=== PATIENT | male | born 1975 | race Caucasian/White ===

== ENCOUNTER 2017-03-24 00:05 | Inpatient (IN) | payer BC ==
[2017-03-24 00:47] LABS: APPEARANCE,URINE CLEAR; BILIRUBIN,URINE NEGATIVE (NEGATIVE); GLUCOSE, URINE NEGATIVE (NEGATIVE); KETONES,URINE NEGATIVE (NEGATIVE); LEUKOCYTE ESTERASE,URINE NEGATIVE (NEGATIVE); NITRITE,URINE NEGATIVE (NEGATIVE); PROTEIN,URINE NEGATIVE (NEGATIVE); URINE SPECIFIC GRAVITY 1.005; UROBILINOGEN,URINE NEGATIVE mg/dL (<2.0)
[2017-03-24] MEDS ORDERED: NORMAL SALINE 1000 ML 1,000 ML IV PRN (01:30)
[2017-03-24] MEDS ORDERED: ONDANSETRON HCL INJ/PF 4 MG/2 ML SDV IV ONE (01:30)
[2017-03-24] MEDS ORDERED: MORPHINE SULFATE 10 MG/ML INJ IV ONE ×2 (01:30→03:04)
--- NOTE | 2017-03-24 01:31 | ER Document Report ---
ED GI/ - General Chief Complaint: Abdominal Pain Stated Complaint: ABDOMINAL PAIN Time Seen by Provider: 03/24/17 01:18 Mode of Arrival: Ambulatory Information source: Patient TRAVEL OUTSIDE OF THE [place] IN LAST 30 DAYS: No - HPI Patient complains to provider of: Abdominal pain Onset: Other - 2-3 days Timing/Duration: Gradual, Persistent Quality of pain: Achy, Cramping Severity at maximum: Moderate Severity in ED: Moderate Location: Epigastric, Left flank Associated symptoms: Dysuria, Nausea Exacerbated by: Denies Relieved by: Denies Similar symptoms previously: No Recently seen / treated by doctor: No Notes: 03/24/17 03:06 Is a 41-year-old male who presents to the emergency room complaining of abdominal pain with nausea that has been going on for the past 2-3 days, this evening it woke him from sleep, it is mainly on the left side but started out on the right upper quadrant and epigastric region, he also reports a sensation of a sweet taste in his mouth, patient has a history of a previous perforated diverticulum with a colostomy which was then closed February 2016, since then he has been trying to eat more fiber and salads or healthier foods, he also has a history of pancreatitis, states his last alcoholic beverage was over a week ago , he reports increased color to his urine as well as odor, no fevers, no questionable food intake recently, he did travel to [place] recently - Related Data Allergies/Adverse Reactions: No Known Allergies Allergy (Verified 07/07/16 18:10) Past Medical History - General Information source: Patient - Social History Smoking Status: Never Smoker Family History: Reviewed & Not Pertinent Patient has suicidal ideation: No Patient has homicidal ideation: No - Past Medical History Cardiac Medical History: Denies: Hx Atrial Fibrillation, Hx Congestive Heart Failure, Hx Coronary Artery Disease, Hx Heart Attack, Hx Hypercholesterolemia, Hx Hypertension, Hx Peripheral Vascular Disease, Hx Pulmonary Embolism, Hx Heart Murmur Pulmonary Medical History: Denies: Hx Asthma, Hx Bronchitis, Hx COPD, Hx Pneumonia, Hx Respiratory Failure, Hx Sleep Apnea, Hx Tuberculosis Neurological Medical History: Denies: Hx Cerebrovascular Accident, Hx Seizures Endocrine Medical History: Reports: Hx Diabetes Mellitus Type 2. Denies: Hx Diabetes Mellitus Type 1, Hx Graves' Disease, Hx Hyperthyroidism, Hx Hypothyroidism Renal/ Medical History: Denies: Hx Benign Prostatic Hyperplasia, Hx End Stage Renal Disease, Hx Kidney Stones, Hx Peritoneal Dialysis Malignancy Medical History: Denies Hx Leukemia, Denies Hx Lung Cancer GI Medical History: Reports: Hx Diverticulitis. Denies: Hx Crohn's Disease, Hx Gastroesophageal Reflux Disease, Hx Hiatal Hernia, Hx Irritable Bowel, Hx Liver Failure, Hx Ulcer Musculoskeltal Medical History: Denies Hx Arthritis, Denies Hx Fibromyalgia, Denies Hx Multiple Sclerosis, Denies Hx Muscular Dystrophy Psychiatric Medical History: Denies: Hx Bipolar Disorder, Hx Dementia, Hx Depression, Hx Post Traumatic Stress Disorder, Hx Schizophrenia Traumatic Medical History: Denies: Hx Fractures Infectious Medical History: Denies: Hx HIV Past Surgical History: Reports: Hx Bowel Surgery - colostomy,COLON RESECTION, ILEOSTOMY IN PLACE. Denies: Hx Appendectomy, Hx Cholecystectomy, Hx Colostomy, Hx Coronary Artery Bypass Graft, Hx Gastric Bypass Surgery, Hx Herniorrhaphy, Hx Pacemaker, Hx Tonsillectomy - Immunizations Hx Diphtheria, Pertussis, Tetanus Vaccination: Yes Review of Systems - Review of Systems Constitutional: No symptoms reported EENT: No symptoms reported Cardiovascular: No symptoms reported Respiratory: No symptoms reported Gastrointestinal: See HPI Genitourinary: See HPI Male Genitourinary: No symptoms reported Musculoskeletal: No symptoms reported Skin: No symptoms reported Hematologic/Lymphatic: No symptoms reported Neurological/Psychological: No symptoms reported -: Yes All other systems reviewed and negative Physical Exam - Vital signs Vitals: Temp Pulse Resp BP Pulse Ox 98.5 F 80 16 156/91 H 97 03/24/17 00:17 03/24/17 00:17 03/24/17 00:17 03/24/17 00:17 03/24/17 00:17 Interpretation: Normal - General General appearance: Appears well, Alert - HEENT Head: Normocephalic, Atraumatic Eyes: Normal Pupils: PERRL - Respiratory Respiratory status: No respiratory distress Chest status: Nontender Breath sounds: Normal Chest palpation: Normal - Cardiovascular Rhythm: Regular Heart sounds: Normal auscultation Murmur: No - Abdominal Inspection: Normal Distension: No distension Bowel sounds: Normal Tenderness: Tender - epigastric, LUQ, RUQ Organomegaly: No organomegaly - Back Back: Normal, Nontender - Extremities General upper extremity: Normal inspection, Nontender, Normal color, Normal ROM , Normal temperature General lower extremity: Normal inspection, Nontender, Normal color, Normal ROM , Normal temperature, Normal weight bearing. No: Murphy's sign - Neurological Neuro grossly intact: Yes Cognition: Normal Orientation: AAOx4 Rylan Coma Scale Eye Opening: Spontaneous [place] Coma Scale Verbal: Oriented [place] Coma Scale Motor: Obeys Commands Rylan Coma Scale Total: 15 Speech: Normal Motor strength normal: LUE, RUE, LLE, RLE Sensory: Normal - Psychological Associated symptoms: Normal affect, Normal mood - Skin Skin Temperature: Warm Skin Moisture: Dry Skin Color: Normal Course - Re-evaluation Re-evalutation: 03/24/17 03:55 Was discussed with on-call surgeon, Dr. Vazquez, to admit for further evaluation and treatment, this plan was discussed with patient and at bedside who are in agreement as well - Vital Signs Vital signs: Temp Pulse Resp BP Pulse Ox 98.5 F 80 16 156/91 H 97 03/24/17 00:17 03/24/17 00:17 03/24/17 00:17 03/24/17 00:17 03/24/17 00:17 - Laboratory Result Diagrams: 03/24/17 01:20 03/24/17 01:20 Laboratory results interpreted by me: 03/24/17 03/24/17 01:20 01:20 Eosinophils % 9.4 H Absolute Eosinophils 0.8 H Total Bilirubin 2.3 H Direct Bilirubin 1.8 H AST 214 H ALT 712 H Alkaline Phosphatase 165 H - Diagnostic Test Radiology reviewed: Image reviewed, Reports reviewed Discharge - Discharge Clinical Impression: Gallstones Condition: Stable Disposition: ADMITTED INPATIENT Admitting Provider: Surgicalist Unit Admitted: Surgical Floor Referrals: NHAN STEELE MD [Primary Care Provider] - Follow up as needed
[2017-03-24 01:40] LABS: ABSOLUTE BASOPHILS # (AUTO) 0.1 10^3/uL (0.0-0.2); ABSOLUTE EOSINOPHILS # (AUTO) 0.8 10^3/uL (0.0-0.6); ABSOLUTE LYMPHOCYTES (AUTO) 2.5 10^3/uL (0.5-4.7); ABSOLUTE MONOCYTES (AUTO) 0.9 10^3/uL (0.1-1.4); ABSOLUTE NEUT (AUTO) 4.4 10^3/uL (1.7-8.2); BASOPHILS % (AUTO) 0.7 % (0-2); EOSINOPHILS % (AUTO) 9.4 % (0-6); HEMATOCRIT 43.6 % (37.9-51.0); HEMOGLOBIN 14.4 g/dL (13.5-17.0); HGB HCT DIFFERENCE -0.4; LYMPHOCYTES % (AUTO) 29.2 % (13-45); MEAN CORPUSCULAR HEMOGLOBIN 30.1 pg (27.0-33.4); MEAN CORPUSCULAR HGB CONC 33.1 g/dL (32.0-36.0); MEAN CORPUSCULAR VOLUME 91 fl (80-97); MONOCYTES % (AUTO) 9.8 % (3-13); RED CELL DISTRIBUTION WIDTH 13.4 % (11.5-14.0); SEGMENTED NEUTROPHILS % (AUTO) 50.9 % (42-78); WHITE BLOOD COUNT 8.7 10^3/uL (4.0-10.5)
[2017-03-24 01:41] LABS: ALANINE AMINOTRANSFERASE 712 U/L (21-72); ALBUMIN 4.2 g/dL (3.5-5.0); ALKALINE PHOSPHATASE 165 U/L (38-126); ANION GAP 12 (5-19); ASPARTATE AMINO TRANSFERASE 214 U/L (17-59); BILIRUBIN,DIRECT 1.8 mg/dL (0.0-0.4); BILIRUBIN,TOTAL 2.3 mg/dL (0.2-1.3); BLOOD UREA NITROGEN 18 mg/dL (7-20); CALCIUM 9.6 mg/dL (8.4-10.2); CARBON DIOXIDE 22 mmol/L (22-30); CHLORIDE 106 mmol/L (98-107); CREATININE RESULT 1.02 mg/dL (0.52-1.25); GLUCOSE 98 mg/dL (75-110); LIPASE 143.3 U/L (23-300); POTASSIUM 4.1 mmol/L (3.6-5.0); SODIUM 139.9 mmol/L (137-145); TOTAL PROTEIN 7.4 g/dL (6.3-8.2)
--- NOTE | 2017-03-24 02:26 | RADIOLOGY REPORT (SQ) ---
EXAM DESCRIPTION: CT ABD/PELVIS WITH IV ONLY COMPLETED DATE/TIME: 03/24/2017 2:10 am REASON FOR STUDY: L abd pain COMPARISON: 03/13/2015. TECHNIQUE: CT scan of the abdomen and pelvis performed using helical scanning technique with dynamic intravenous contrast injection. No oral contrast. Images reviewed with lung, soft tissue, and bone windows. Reconstructed coronal and sagittal MPR images reviewed. Delayed images for evaluation of the urinary system also acquired. All images stored on PACS. All CT scanners at this facility use dose modulation, iterative reconstruction, and/or weight based d osing when appropriate to reduce radiation dose to as low as reasonably achievable (ALARA). [facility]: Dose Right [facility]: CareDose [facility]: Dose Right [facility]: Teradose 4D [facility]: Intraxio CONTRAST TYPE AND DOSE: 100mL Isovue 370- low osmolar. RENAL FUNCTION: Creatinine 1.0 RADIATION DOSE: 39.64mGy. LIMITATIONS: None. FINDINGS: LOWER CHEST: No significant findings. 0.5 and 0.4 cm noncalcified right lower lobar pulmo nary nodules without suspicious interval change compared with prior exam, 03/13/2015. LIVER: Normal size. No masses or dilated ducts. Mild hepatic steatosis. SPLEEN: Normal size. No focal lesions. PANCREAS: No masses. No significant calcifications. No adjacent inflammation or peripancreatic fluid collections. Pancreatic duct not dilated. GALLBLADDER: Small cholelithiasis. ADRENAL GLANDS: No significant masses or asymmetry. RIGHT KIDNEY AND URETER: No solid masses. No significant calcifications. No hydronephrosis or hyd roureter. LEFT KIDNEY AND URETER: No solid masses. No significant calcifications. No hydronephrosis or hydr oureter. AORTA AND VESSELS: No aneurysm. No dissection. Renal arteries, SMA, celiac without stenosis. RETROPERITONEUM: No retroperitoneal adenopathy, hemorrhage or masses. BOWEL AND PERITONEAL CAVITY: No masses or inflammatory changes. No free fluid or peritoneal masses. Suture material of the sigmoid and small bowel of the right paracentral abdomen. APPENDIX: No evidence of appendicitis. PELVIS: No mass or free fluid. Normal bladder. ABDOMINAL WALL: No masses. Small right inguinal fat only hernia. Small scar associated with right p aracentral abdominal wall. BONES: No significant or acute findings. OTHER: No other significant finding. IMPRESSION: No acute findings. Small cholelithiasis. TECHNICAL DOCUMENTATION: JOB ID: [id number] Quality ID # [id number]: Final reports with documentation of one or more dose reduction techniques (e.g., Au tomated exposure control, adjustment of the mA and/or kV according to patient size, use of iterative reconstruction technique) 2010 [employer]- All Rights Reserved
--- NOTE | 2017-03-24 03:40 | RADIOLOGY REPORT (SQ) ---
EXAM DESCRIPTION: U/S ABDOMEN LIMITED W/O DOP COMPLETED DATE/TIME: 03/24/2017 3:24 am REASON FOR STUDY: abd pain COMPARISON: None. TECHNIQUE: Dynamic and static grayscale images acquired of the abdomen and recorded on PACS. Additio nal selected color Doppler and spectral images recorded. LIMITATIONS: None. FINDINGS: PANCREAS: Limited visualization. LIVER: No masses. [id number] hepatic steatosis. LIVER VASCULATURE: Normal directional flow of the main portal vein and hepatic veins. GALLBLADDER: Small gallstones in the gallbladder neck. ULTRASOUND-DETECTED CARNEY'S SIGN: Not documented. INTRAHEPATIC DUCTS AND COMMON DUCT: 0.2 cm diameter. CBD and intrahepatic ducts normal caliber. No f illing defects. INFERIOR VENA CAVA: Normal flow. AORTA: No aneurysm. RIGHT KIDNEY: Normal size. Normal echogenicity. No solid or suspicious masses. No hydronephrosis. No calcifications. Extrarenal pelvis. PERITONEAL AND RIGHT PLEURAL SPACE: No ascites or effusions. OTHER: No other significant findings. IMPRESSION: Cholelithiasis. Limited visualization of the pancreas. TECHNICAL DOCUMENTATION: JOB ID: [id number] [employer]- All Rights Reserved
[2017-03-24] MEDS ORDERED: ONDANSETRON HCL INJ/PF 4 MG/2 ML SDV ONE ×2 (06:43→16:43)
[2017-03-24] MEDS ORDERED: HYDROMORPHONE HCL INJ/PF 2 MG/ML AMPULE ONE (06:43)
[2017-03-24] MEDS ORDERED: POTASSI CL 20 MEQ/D5-1/2NS 1L 1000 ML IV PRN (06:43)
[2017-03-24] MEDS: POTASSI CL 20 MEQ/D5-1/2NS 1L 1000 ML IV PRN ×2 (06:58→19:55)
--- NOTE | 2017-03-24 07:33 | HISTORY AND PHYSICAL E ---
History and Physical NAME: CLAUDIA MCGOVERN : 1975 AGE: 41Y ADMITTED: 03/24/2017 ROOM: 401 HISTORY OF PRESENT ILLNESS: The patient is a 41-year-old male patient admitted through the Emergency Room with a history of abdominal pain, nausea; pain basically for 2 days and found to have gallstones, multiple with jaundice. He is being admitted for a possible choledocholithiasis and cholelithiasis with cholecystitis management. This gentleman, with no symptoms until 2 days ago, started having upper abdominal pain, mostly on the right side. Last night he could not tolerate it any more. He had nausea. Pain was mostly in the right upper quadrant radiating up his shoulder, associated with nausea. Upon arrival to the Emergency Room he had an ultrasound of the gallbladder, which revealed multiple gallstones. Specifically did not reveal any dilatation of the common bile duct, but abnormal liver functions including bilirubin was 2.3, direct 1.8. Alkaline phosphatase also elevated at 165. PAST SURGICAL HISTORY: Significant for history of diverticulitis with resection ileostomy, *------* take down in the past about a year ago. MEDICAL PROBLEMS: There are no other major medical problems. REVIEW OF SYSTEMS: CARDIOVASCULAR: No history of chest pain. RESPIRATORY: No shortness of breath. ENDOCRINE: No known history of diabetes. PHYSICAL EXAMINATION: VITAL SIGNS: He is mildly icteric examination with blood pressure about 120s, heart rate about 64. HEAD AND NECK: No lymphadenopathy. No masses. RESPIRATORY: Both lungs were clear to auscultation. CARDIOVASCULAR: Both heart sounds are regular. No murmurs. No gallops. ABDOMEN: Soft. He does have tenderness in the right upper quadrant area, no mass palpable. No hernia. EXTREMITIES: Warm and well perfused. LABORATORY DATA: Abnormal, particularly liver function test with a bilirubin 2.3, 1.8 direct, alkaline phosphatase 165, white count 8.7, hemoglobin 14. IMPRESSION: Overall cholelithiasis, cholecystitis, and possible choledocholithiasis with some degree of functional jaundice. PLAN: He is getting an MRI done today. I ordered an MRI and MRCP to evaluate the common bile duct. If it is positive, then will get a GI consult for ERCP followed by cholecystectomy. In the meantime he is being covered with IV antibiotic, Levaquin IV. The patient was explained about the plan and the patient understood the plan. DICTATING PHYSICIAN: PRESTON COTA M.D. [id number] [facility]#: [id number] ID: [id number] JOB#: [id number] ACCT: [id number] cc: > [facility]
[2017-03-24] MEDS ORDERED: DEXTROSE 40% GEL 15 GM TUBE PO PRN ×2 (08:53)
[2017-03-24] MEDS ORDERED: DEXTROSE 50%-WATER 25 GM/50 ML DISP.SYRIN IV PRN ×2 (08:53)
[2017-03-24] MEDS ORDERED: GLUCAGON,HUMAN RECOMB 1 MG INJ SUBCUT PRN (08:53)
--- NOTE | 2017-03-24 09:02 | PDOC PROGRESS REPORT ---
Subjective Progress Note for:: 03/24/17 Subjective:: Still having epigastric abdominal pain. Physical Exam Vital Signs: Temp Pulse Resp BP Pulse Ox 98.3 F 67 20 136/77 H 98 03/24/17 07:54 03/24/17 07:54 03/24/17 07:54 03/24/17 07:54 03/24/17 07:54 Intake & Output 03/23/17 03/24/17 03/25/17 06:59 06:59 06:59 Intake Total 0 Output Total 0 Balance 0 General appearance: PRESENT: no acute distress GI/Abdominal exam: PRESENT: other - Soft, nondistended, diffuse upper abdominal tenderness to palpation especially right upper quadrant. No peritoneal signs Results Impressions: Abdomen/Pelvis CT 03/24/17 01:30 IMPRESSION: No acute findings. Small cholelithiasis. Abdomen Ultrasound 03/24/17 02:39 IMPRESSION: Cholelithiasis. Limited visualization of the pancreas. Assessment & Plan - Diagnosis (1) Choledocholithiasis with cholecystitis Is this a current diagnosis for this admission?: YesPlan: With this marked elevation of his liver function studies and small gallstones seen patient has high likelihood of choledocholithiasis. Will consult gastroenterology for ERCP. Unfortunately MRCP at our institution is not perfectly sensitive for common bile duct stones.
[2017-03-24 09:43] LABS: PROTHROMBIN TIME 12.6 SEC (11.4-15.4)
[2017-03-24] MEDS ORDERED: ENOXAPARIN SODIUM INJ 40 MG/0.4 ML DISP.SYRIN SUBCUT SCH (10:00)
[2017-03-24] MEDS: HYDROMORPHONE HCL INJ/PF 2 MG/ML AMPULE IV PRN ×2 (10:09→19:55)
[2017-03-24] MEDS: LEVOFLOXACIN 750 MG/D5W RTU 750 MG/150 ML RTUPB IV SCH (10:10)
[2017-03-24] MEDS: ENOXAPARIN SODIUM INJ 40 MG/0.4 ML DISP.SYRIN SUBCUT SCH (10:11)
[2017-03-24] MEDS ORDERED: NALOXONE HCL INJ/PF 0.4 MG/1 ML SDV ONE (16:41)
[2017-03-24] MEDS ORDERED: FENTANYL CITRATE INJ/PF 100 MCG/2 ML AMPUL ONE (16:41)
[2017-03-24] MEDS ORDERED: GLUCAGON,HUMAN RECOMB 1 MG INJ ONE (16:42)
[2017-03-24] MEDS ORDERED: EPINEPHRINE INJ 1 MG/10 ML DISP.SYRIN ONE (16:42)
[2017-03-24] MEDS ORDERED: FLUMAZENIL INJ 0.5 MG/5 ML VIAL IV ONE (16:42)
[2017-03-24] MEDS: MIDAZOLAM 2 MG/2 ML INJ ONE ×4 (18:18→18:27)
--- NOTE | 2017-03-24 18:19 | PDOC CONSULTATION ---
Consultation Consult Date: 03/24/17 History of Present Illness Admission Date/PCP: 03/24/17 04:00 NHAN STEELE MD History of Present Illness: CLAUDIA MCGOVERN JR is a 41 year old male who was admitted early on today with abdominal pain, gallstones, and jaundice. He has been having recurrent postprandial epigastric pain for the last 4 days. This is associated with nausea but no vomiting. His bilirubin was 2.3 on admission with a normal lipase. His ultrasound showed gallstones but no dilated ducts. A CAT scan of the abdomen was unremarkable. Past Medical History Cardiac Medical History: Denies: Atrial Fibrillation, Congestive Heart Failure, Coronary Artery Disease, Myocardial Infarction, Hyperlipidema, Hypertension, Peripheral Vascular Disease, Pulmonary Embolism, Heart Murmur Pulmonary Medical History: Denies: Asthma, Bronchitis, Chronic Obstructive Pulmonary Disease (COPD), Pneumonia, Respiratory Failure, Sleep Apnea, Tuberculosis Neurological Medical History: Denies: Seizures Endocrine Medical History: Reports: Diabetes Mellitus Type 2 Denies: Diabetes Mellitus Type 1, Hyperthyroidism, Hypothyroidism Renal/ Medical History: Denies: End Stage Renal Disease Malignancy Medical History: Denies: Leukemia, Lung Cancer GI Medical History: Reports: Diverticulitis Denies: Crohn's Disease, Gastroesophageal Reflux Disease, Hiatal Hernia Musculoskeltal Medical History: Denies: Arthritis, Fibromyalgia Psychiatric Medical History: Denies: Bipolar Disorder, Dementia, Depression, Post Traumatic Stress Disorder Hematology: Denies: Anemia, Hemophilia, Sickle Cell Disease Infectious Medical History: Denies: HIV Past Surgical History Past Surgical History: Denies: Appendectomy, Cholecystectomy, Colostomy, Coronary Artery Bypass Graft, Gastric Bypass Surgery, Herniorrhaphy, Pacemaker, Tonsillectomy Social History Smoking Status: Former Smoker Cigarettes Packs Per Day: 1 Number of Years Smokin Last Time Smoked: 20 years ago Frequency of Alcohol Use: Occasional Hx Recreational Drug Use: No Drugs: None Hx Prescription Drug Abuse: No - Advance Directive Resuscitation Status: Full Code Family History Family History: Reviewed & Not Pertinent Parental Family History Reviewed: No Children Family History Reviewed: NA Sibling(s) Family History Reviewed.: NA Medication/Allergy Home Medications: No Home Medications 03/24/17 Allergies/Adverse Reactions: No Known Allergies Allergy (Verified 07/07/16 18:10) Review of Systems All systems: reviewed and no additional remarkable complaints except as stated Physical Exam Vital Signs: Temp Pulse Resp BP Pulse Ox 98 F 71 14 122/75 95 03/24/17 17:00 03/24/17 17:25 03/24/17 17:25 03/24/17 17:25 03/24/17 17:25 Intake & Output 03/23/17 03/24/17 03/25/17 06:59 06:59 06:59 Intake Total 0 1458 Output Total 0 400 Balance 0 1058 Exam: General: Patient is alert and looks well. HEENT: There is no pallor or jaundice. PERRLA. Oropharynx normal Respiratory: No chest deformity. No respiratory distress. Chest wall palpitation was unremarkable. Breath sounds were normal Cardiovascular: Heart sounds 1 and 2 normal with no murmurs. Abdominal: Not distended. Soft and nontender. Liver and spleen not palpable. No ascites demonstrated. Bowel sounds active. Rectal examination was deferred. Extremities: No edema Neurological: Alert and oriented x4. Grossly nonfocal. Normal speech Skin: No significant rash Psychological: Normal affect Results Impressions: Abdomen/Pelvis CT 03/24/17 01:30 IMPRESSION: No acute findings. Small cholelithiasis. Abdomen Ultrasound 03/24/17 02:39 IMPRESSION: Cholelithiasis. Limited visualization of the pancreas. Assessment & Plan - Diagnosis (1) Abnormal liver enzymes Is this a current diagnosis for this admission?: YesPlan: His recurrent abdominal pain associated with jaundice and gallstones is likely related to choledocholithiasis. The need for an ERCP including the risk and benefits were explained to the patient and he is in agreement. He will undergo cholecystectomy soon thereafter (2) Gallstones Is this a current diagnosis for this admission?: Yes (3) Abdominal pain Qualifiers: Abdominal location: epigastric Qualified Code(s): R10.13 - Epigastric pain Is this a current diagnosis for this admission?: Yes
--- NOTE | 2017-03-24 18:39 | Operative Report ---
Operative Report DATE OF SURGERY: 03/24/17 Operative Report: Pre-op diagnosis: Jaundice and gallstones Post-op diagnosis: CBD sludge Surgery: ERCP with sphincterotomy and balloon sludge extraction Medications: Versed 6 mg Fentanyl 100 mcg IV push Tissue removed: None Procedure: After informed consent obtained from patient, the throat was sprayed with Hurricane and conscious sedation was achieved. The ERCP endoscope was then inserted into the esophagus blindly and advanced into the stomach. The duodenum was entered and the ampulla was identified. Using the triple-lumen sphincterotomy catheter the common bile duct was freely cannulated. A cholangiogram was obtained which showed possible filling defect in the distal common bile duct. The common bile duct and intrahepatic ducts did not appear dilated. A good sized sphincterotomy was then performed using the endocut mode. The catheter was removed over the guidewire before a 9-12 mm balloon catheter was inserted. The balloon was inflated to 12 mm in the proximal common bile duct and pulled down the duct. Some sludge was extracted. The duct was swept one more time. A balloon occlusion cholangiogram was normal. The pancreatic duct was intentionally not cannulated. Patient tolerated procedure well. Findings Common bile duct: Small amount of sludge with nondilated CBD Intrahepatic ducts: Normal Pancreatic duct: Not cannulated Plan: Proceed with cholecystectomy OPERATION: .
--- NOTE | 2017-03-24 21:04 | RADIOLOGY REPORT (SQ) ---
EXAM DESCRIPTION: ENDO CATH BILI/PANCREATIC COMPLETED DATE/TIME: 03/24/2017 8:07 pm REASON FOR STUDY: ERCP COMPARISON: None. FLUOROSCOPY TIME: 1.0 minutes 6 images saved to PACS. TECHNIQUE: Intra-operative images acquired during surgical procedure to evaluate progress. NUMBER OF IMAGES: 6 images LIMITATIONS: None. FINDINGS: Fluoroscopic images were obtained during performance of an ERCP. IMPRESSION: IMAGE(S) OBTAINED DURING PROCEDURE. COMMENT: Quality ID [id number]: Final reports for procedures using fluoroscopy that document radiation exp osure indices, or exposure time and number of fluorographic images (if radiation exposure indices are not available) Please consult full operative report of the attending physician for description of the procedure. TECHNICAL DOCUMENTATION: JOB ID: [id number] [employer]- All Rights Reserved
[2017-03-24] MEDS: ONDANSETRON HCL INJ/PF 4 MG/2 ML SDV IV PRN (22:33)
[2017-03-24] MEDS ORDERED: ACETAMINOPHEN 325 MG TABLET PO ONE (23:00)
[2017-03-25] MEDS: HYDROMORPHONE HCL INJ/PF 2 MG/ML AMPULE IV PRN ×2 (00:09→21:56)
[2017-03-25 04:56] LABS: HEMATOCRIT 44.6 % (37.9-51.0); HEMOGLOBIN 14.9 g/dL (13.5-17.0); HGB HCT DIFFERENCE 0.1; MEAN CORPUSCULAR HEMOGLOBIN 30.1 pg (27.0-33.4); MEAN CORPUSCULAR HGB CONC 33.5 g/dL (32.0-36.0); MEAN CORPUSCULAR VOLUME 90 fl (80-97); RED BLOOD COUNT 4.96 10^6/uL (4.35-5.55); RED CELL DISTRIBUTION WIDTH 13.7 % (11.5-14.0); WHITE BLOOD COUNT 7.3 10^3/uL (4.0-10.5)
[2017-03-25 05:12] LABS: ALANINE AMINOTRANSFERASE 624 U/L (21-72); ALBUMIN 4.3 g/dL (3.5-5.0); ALKALINE PHOSPHATASE 156 U/L (38-126); ASPARTATE AMINO TRANSFERASE 188 U/L (17-59); BILIRUBIN,DIRECT 1.3 mg/dL (0.0-0.4); BILIRUBIN,TOTAL 2.2 mg/dL (0.2-1.3); TOTAL PROTEIN 7.3 g/dL (6.3-8.2)
[2017-03-25] MEDS ORDERED: GLYCOPYRROLATE INJ 0.4 MG/2 ML VIAL ONE (08:11)
[2017-03-25] MEDS ORDERED: DEXAMETHASONE SOD PHOSPHATE INJ 4 MG/1 ML VIAL ONE (08:11)
[2017-03-25] MEDS ORDERED: LIDOCAINE 2% INJ-PF (20 MG/ML) 10 ML AMPUL ONE (08:11)
[2017-03-25] MEDS ORDERED: ONDANSETRON HCL INJ/PF 4 MG/2 ML SDV ONE (08:11)
[2017-03-25] MEDS ORDERED: KETOROLAC TROMETHAMINE 60 MG/2 ML SDV ONE (08:11)
[2017-03-25] MEDS ORDERED: ROCURONIUM BROMIDE INJ 50 MG/5 ML VIAL IV ONE (08:11)
[2017-03-25] MEDS ORDERED: SUCCINYLCHOLINE CHLORIDE INJ 200 MG/10 ML VIAL ONE (08:11)
[2017-03-25] MEDS ORDERED: NEOSTIGMINE METHYLSULFATE 10 MG/10 ML VIAL ONE (08:11)
[2017-03-25] MEDS ORDERED: ACETAMINOPHEN 325 MG TABLET PO PRN (08:43)
[2017-03-25] MEDS ORDERED: BUPIVACAINE HCL 0.25 % INJ/PF (2.5 MG/1 ML) 30 ML VIAL ONE (09:39)
[2017-03-25] MEDS: ENOXAPARIN SODIUM INJ 40 MG/0.4 ML DISP.SYRIN SUBCUT SCH (09:54)
[2017-03-25] MEDS: LEVOFLOXACIN 750 MG/D5W RTU 750 MG/150 ML RTUPB IV SCH (09:54)
[2017-03-25] MEDS ORDERED: FENTANYL CITRATE INJ/PF 100 MCG/2 ML AMPUL ONE (14:14)
[2017-03-25] MEDS ORDERED: MIDAZOLAM 2 MG/2 ML INJ ONE (14:14)
[2017-03-25] MEDS ORDERED: EPHEDRINE SULFATE INJ 50 MG/1 ML AMPULE ONE (14:14)
[2017-03-25] MEDS ORDERED: FENTANYL CITRATE INJ/PF 250 MCG/5 ML AMPULE ONE (14:14)
[2017-03-25] MEDS ORDERED: PROPOFOL INJ 200 MG/20 ML VIAL IV ONE (14:15)
[2017-03-25] MEDS ORDERED: ACETAMINOPHEN 100 ML IV ONE (14:15)
[2017-03-25] MEDS ORDERED: MORPHINE SULFATE 10 MG/ML INJ ONE (14:16)
[2017-03-25] MEDS ORDERED: MEPERIDINE HCL/PF INJ 25 MG/1 ML DISP.SYRIN IV PRN (17:01)
[2017-03-25] MEDS ORDERED: DIPHENHYDRAMINE HCL 50 MG/ML VIAL IV PRN (17:01)
[2017-03-25] MEDS ORDERED: PROMETHAZINE HCL INJ 25 MG/1 ML VIAL IV PRN ×2 (17:01)
[2017-03-25] MEDS ORDERED: FENTANYL CITRATE INJ/PF 100 MCG/2 ML AMPUL IV PRN ×3 (17:01)
[2017-03-25] MEDS ORDERED: MORPHINE SULFATE 10 MG/ML INJ IV PRN (17:01)
[2017-03-25] MEDS ORDERED: OXYCODONE-ACETAMINOPHEN 5-325 MG TABLET PO PRN ×2 (17:01)
[2017-03-25] MEDS ORDERED: HYDROMORPHONE HCL INJ/PF 2 MG/ML AMPULE IV PRN (18:50)
[2017-03-25] MEDS ORDERED: RINGERS SOLUTION,LACTATED 1,000 ML IV PRN (18:51)
[2017-03-25] MEDS: FENTANYL CITRATE INJ/PF 100 MCG/2 ML AMPUL ONE ×2 (19:03→19:14)
--- NOTE | 2017-03-25 19:38 | OPERATIVE REPORT E ---
Operative Report NAME: CLAUDIA MCGOVERN : 1975 AGE: 41Y DATE OF SURGERY: 03/24/2017 ROOM: 401 PREOPERATIVE DIAGNOSIS: Common bile duct stone post endoscopic retrograde cholangiopancreatography and sphincterotomy and removal of common bile duct stones. POSTOPERATIVE DIAGNOSIS: Common bile duct stone post endoscopic retrograde cholangiopancreatography and sphincterotomy and removal of common bile duct stones. OPERATION: 1. Attempted laparoscopic cholecystectomy. 2. Open cholecystectomy. SURGEON: LOREE RACHEL M.D. ANESTHESIA: General. INDICATIONS: This is a 41-year-old male who was noted to have common bile duct stones and an ERCP yesterday. His enzymes are trending down this morning, and the pain has practically subsided. DESCRIPTION OF PROCEDURE: After adequate general anesthesia, the patient was placed in supine position and the abdomen prepped and draped in the usual sterile fashion. Appropriate timeout was done. Next, a subxiphoid incision was made and the fascia identified. The fascia was then opened, and a finger dissection was then performed. There appeared to be quite a bit of adhesions at this area. The patient did have a previous colon resection and reversal of colostomy. The procedure was converted to open. A right subcostal incision was made, the fascia divided with cautery, and the peritoneum entered. There were quite a few adhesions around the area *------* bluntly. Gallbladder was then identified. With the use of Bookwalter retractors, exposure was done though quite difficult since the patient was quite big and muscles were well formed. The gallbladder was subsequently dissected in a retrograde fashion. The adhesion to the liver bed was then dissected with the use of cautery and harmonic henry to the area of cystic duct. The cystic duct was then isolated and subsequently clipped and ligated with 0 Vicryl ties. A right-angle clamp placed in the area of the gallbladder and cystic duct subsequently divided just below the right-angle clamp. The liver bed was then irrigated and inspected and no evidence of bleeding. A Peter-Pierson drain was then placed through a stab wound in the right upper quadrant and anchored to the skin with 3-0 silk. The drain was then placed in the area of the foramen of Latimer and towards the area of the liver bed. Next, the incisions were then closed in layers. The inner layer posterior layer using running suture of #1 PDS and the anterior layer also with #1 PDS. The midline incision from the trocar site was closed with running suture of #1 PDS. The subcutaneous was then irrigated with saline solution and adequate hemostasis noted. Skin was then closed with [place]. The patient tolerated the procedure well. Needle, instrument, and sponge counts were all correct. Estimated blood loss was about 100 mL. Sterile dressing was placed over the incision site after skin closure with ind[place]. Drain anchored to the skin with 3-0 silk. The patient tolerated well and brought to the recovery room in satisfactory condition. DICTATING PHYSICIAN: LOREE RACHEL M.D. [id number] PHY#: [id number] ID: [id number] JOB#: [id number] ACCT: [id number] cc:LOREE RACHEL M.D. >
[2017-03-25] MEDS: ONDANSETRON HCL INJ/PF 4 MG/2 ML SDV IV PRN (21:56)
[2017-03-26] MEDS: HYDROMORPHONE HCL INJ/PF 2 MG/ML AMPULE IV PRN ×6 (00:58→20:06)
[2017-03-26] MEDS ORDERED: OXYCODONE-ACETAMINOPHEN 5-325 MG TABLET PO PRN (05:00)
[2017-03-26] MEDS: LEVOFLOXACIN 500 MG/D5W RTU 500 MG/100 ML RTUPB IV SCH (07:46)
[2017-03-26] MEDS ORDERED: LEVOFLOXACIN 500 MG TABLET PO SCH (08:00)
[2017-03-26] MEDS: ENOXAPARIN SODIUM INJ 40 MG/0.4 ML DISP.SYRIN SUBCUT SCH (09:15)
--- NOTE | 2017-03-26 14:59 | PROGRESS NOTE E ---
Progress Note NAME: CLAUDIA MCGOVERN : 1975 AGE: 41Y DATE: 03/26/2017 ROOM: 401 SUBJECTIVE/OBJECTIVE: Patient is postop day #1 for open cholecystectomy. He has some mild incisional pains and tolerated his clear liquids this morning. He has not passed any flatus yet, but he feels that he might go any time. His abdomen is soft and nontender. The OPAL drain only drained about 25 mL from last night. PLAN: The plan is to continue on IV fluids for now and start him ambulating. We will discontinue the drain and hopefully, by tomorrow, if able to tolerate his diet and pain is controlled by pain pills, then we can discharge him to be followed in the surgical clinic. DICTATING PHYSICIAN: LOREE RACHEL M.D. [id number] PHY#: [id number] ID: [id number] JOB#: [id number] ACCT: [id number] cc: >
[2017-03-26] MEDS ORDERED: BISACODYL 10 MG SUPP.RECT PR ONE (16:30)
[2017-03-27] MEDS: HYDROMORPHONE HCL INJ/PF 2 MG/ML AMPULE IV PRN ×2 (00:18→04:59)
--- NOTE | 2017-03-27 08:08 | DISCHARGE SUMMARY E ---
Discharge Summary NAME: CLAUDIA MCGOVERN : 1975 AGE: 41Y ADMITTED: 03/24/2017 DISCHARGED: 03/27/2017 FINAL DIAGNOSIS: Common bile duct stone. PROCEDURES DONE: 1. ERCP with sphincterotomy and removal of common bile duct stones 03/24/[address] Elena. 2. 03/25/2017, open cholecystectomy, surgeon Dr. Campos. SUMMARY: This is a 41-year-old male who was noted to have common bile duct stones and underwent ERCP with sphincterotomy and removal of common bile duct stones by Dr. Elena on 03/24/2017. The next day, his enzymes were trending down and underwent attempted laparoscopy, but converted to open cholecystectomy. His postoperative course was uneventful and discharged on 03/27/2017 with a final diagnosis of gallstones with common bile duct stone. PLAN: 1. He is able to eat regular diet and continued to do so postop. 2. A note was given for work not to do any lifting more than 10-15 pounds for the next 6 weeks and then may resume regular work with no restrictions after that. 3. Patient to be followed up in the surgical clinic in about 10 days for removal of [place]. DICTATING PHYSICIAN: LOREE CAMPOS M.D. [id number] Y#: [id number] ID: [id number] JOB#: [id number] ACCT: [id number] cc:LOREE CAMPOS M.D. [facility],
[2017-03-27] MEDS: LEVOFLOXACIN 500 MG/D5W RTU 500 MG/100 ML RTUPB IV SCH (08:22)
[2017-03-27] MEDS: ENOXAPARIN SODIUM INJ 40 MG/0.4 ML DISP.SYRIN SUBCUT SCH (09:25)
[2017-03-27] MEDS ORDERED: KETOROLAC TROMETHAMINE INJ/PF 30 MG/1 ML SDV IV PRN ×2 (09:41→09:45)
[2017-03-27] MEDS ORDERED: OXYCODONE-ACETAMINOPHEN 5-325 MG TABLET PO PRN (09:42)
[2017-03-27 12:32] VITALS: BP 113/66
== END 2017-03-27 12:45 | disposition home or self-care (01) | DRG 416 ==
LOC: ER 00:05 → EH 04:00 → 4N 05:01
PROVIDERS: ATTEND Surgery
PROC: 0F798ZZ Dilation of Common Bile Duct, Via Natural or Artificial Opening Endoscopic (ICD-10-PCS; 2017-03-24)
PROC: 0FT40ZZ Resection of Gallbladder, Open Approach (ICD-10-PCS; principal; 2017-03-24 17:30)
PROC: 0FJ44ZZ Inspection of Gallbladder, Percutaneous Endoscopic Approach (ICD-10-PCS; 2017-03-24 17:30)
DX: K80.10 Calculus of gallbladder with chronic cholecystitis without obstruction (principal); Z53.31 Laparoscopic surgical procedure converted to open procedure; E11.9 Type 2 diabetes mellitus without complications; Z87.19 Personal history of other diseases of the digestive system; Z87.891 Personal history of nicotine dependence
CPT/HCPCS: 36415; 43262; 43264; 74177; 74330; 76705; 790; 80053; 80076; 81001; 83690; 85025; 85027; 85610; 85730; 88304; 94799; 96361; 96374; 96375; 96376; 99285; J0131; J0171; J0330; J1100; J1170; J1610; J1650; J1885; J1956; J2250; J2270; J2310; J2405; J2704; J3010; J3480; J3490; J7030; J7120

== ENCOUNTER 2020-02-23 18:29 | Emergency (ER) | payer BC ==
--- NOTE | 2020-02-23 18:53 | ER Document Report ---
ED Medical Screen (RME) - General Chief Complaint: S/S of Possible Stroke Stated Complaint: ARM NUMBNESS Time Seen by Provider: 02/23/20 18:47 Primary Care Provider: NHAN STEELE MD [Primary Care Provider] - Follow up as needed Mode of Arrival: Wheelchair Information source: Patient Notes: 44-year-old male presented to ED for complaint of the worst headache of her life. He states he woke up about 530 this morning with worse headache of his life and numbness to his left arm. He states when he went to bed last night he was normal. He states he does have a history of a TIA in the past. He states he is continuing to have the worst headache and numbness. Patient reports that on Thursday he was trying to speak and could not speak but that cleared up now he is alert oriented respirations regular nonlabored speaking in full sentences. I have greeted and performed a rapid initial assessment of this patient. A comprehensive ED assessment and evaluation of the patient, analysis of test results and completion of medical decision making process will be conducted by an additional ED providers. TRAVEL OUTSIDE OF THE [place] IN LAST 30 DAYS: No - Related Data Allergies/Adverse Reactions: No Known Allergies Allergy (Verified 07/07/16 18:10) Past Medical History - Past Medical History Cardiac Medical History: Denies: Hx Atrial Fibrillation, Hx Congestive Heart Failure, Hx Coronary Artery Disease, Hx Heart Attack, Hx Hypercholesterolemia, Hx Hypertension, Hx Peripheral Vascular Disease, Hx Pulmonary Embolism, Hx Heart Murmur Pulmonary Medical History: Denies: Hx Asthma, Hx Bronchitis, Hx COPD, Hx Pneumonia, Hx Respiratory Failure, Hx Sleep Apnea, Hx Tuberculosis Neurological Medical History: Denies: Hx Cerebrovascular Accident, Hx Seizures, Hx Parkinson's Disease Endocrine Medical History: Reports: Hx Diabetes Mellitus Type 2. Denies: Hx Diabetes Mellitus Type 1, Hx Graves' Disease, Hx Hyperthyroidism, Hx Hypothyroidism Renal/ Medical History: Denies: Hx Benign Prostatic Hyperplasia, Hx End Stage Renal Disease, Hx Kidney Stones, Hx Peritoneal Dialysis Malignancy Medical History: Denies Hx Leukemia, Denies Hx Lung Cancer GI Medical History: Reports: Hx Diverticulitis. Denies: Hx Crohn's Disease, Hx Gastroesophageal Reflux Disease, Hx Hiatal Hernia, Hx Irritable Bowel, Hx Liver Failure, Hx Pancreatitis, Hx Ulcer Musculoskeltal Medical History: Denies Hx Arthritis, Denies Hx Fibromyalgia, Denies Hx Multiple Sclerosis, Denies Hx Muscular Dystrophy, Denies Hx Systemic Lupus Erythematosus Psychiatric Medical History: Denies: Hx Bipolar Disorder, Hx Dementia, Hx Depression, Hx Post Traumatic Stress Disorder, Hx Schizophrenia Traumatic Medical History: Denies: Hx Fractures Infectious Medical History: Denies: Hx HIV Past Surgical History: Reports: Hx Bowel Surgery - colostomy,COLON RESECTION, ILEOSTOMY IN PLACE. Denies: Hx Appendectomy, Hx Cholecystectomy, Hx Colostomy, Hx Coronary Artery Bypass Graft, Hx Gastric Bypass Surgery, Hx Herniorrhaphy, Hx Pacemaker, Hx Tonsillectomy - Immunizations Hx Diphtheria, Pertussis, Tetanus Vaccination: Yes Physical Exam - Vital signs Vitals: Temp Pulse Resp BP Pulse Ox 98.1 F 100 20 158/99 H 98 02/23/20 18:32 02/23/20 18:32 02/23/20 18:32 02/23/20 18:32 02/23/20 18:32 Course - Vital Signs Vital signs: Temp Pulse Resp BP Pulse Ox 98.1 F 100 20 158/99 H 98 02/23/20 18:32 02/23/20 18:32 02/23/20 18:32 02/23/20 18:32 02/23/20 18:32 Doctor's Discharge - Discharge Referrals: NHAN STEELE MD [Primary Care Provider] - Follow up as needed
--- NOTE | 2020-02-23 18:55 | ER Document Report ---
ED NIH Stroke Scale - NIH Stroke Scale *: 1. NIH scale should be completed with appropriate accompanying assessment tools. *: 2. The NIH should reflect what the patient is capable of doing and should not be coached by the clinician. 1a. Level of Consciousness: 0=Alert;keenly responsive -: 1=Drowsy -: 2=Obtunded -: 3=Coma/unresponsive or reflex to noxious stimuli. 1a. Responses: 0 1b. Orientation Questions: a. What month is it? -: b. How old are you? -: 0=Answers both questions correctly. -: 1=Answers one question correctly or patient is intubated or has orotracheal trauma. -: 2=Answers neither question correctly. 1b. Responses: 0 1c. Response to commands: a. Open and close eyes? -: b. Data Typist and release hand? -: Credit is given despite weakness. Demonstration of task is permitted. Substitute command if hands cannot be used. -: 0=Performs both tasks correctly -: 1=Performs one task correctly -: 2=Performs neither task correctly 1c. Responses: 0 2. Gaze: Establish eye contact and instruct patient to "Follow my finger" -: 0=Normal -: 1=Partial gaze palsy. Gaze is abnormal in one or both eyes, but where forced deviation or total gaze paresis is not present. -: 2=Forced deviation or total gaze paresis. 2. Responses: 0 3. Visual Dyer: Sees fingers in all four quadrants. -: 0=No visual loss. -: 1=Partial hemianopsia. -: 2=Complete hemianopsia. -: 3=Bilateral hemianopsia (including Cortical blindness) 3. Responses: 0 4. Facial Movement: Instruct patient to: -: a. Show me your teeth -: b. Raise your eyebrows -: c. Close your eyes -: d. Smile -: 0=Normal symmetrical movement -: 1=Minor paralysis (flattened nasolabial fold, asymmetry on smiling). -: 2=Partial paralysis (total or near total paralysis of lower face). -: 3=Complete paralysis of upper and lower face 4. Responses: 0 5. Motor functions (left arm): Alternate sides and extend each arm with palms down (90 degrees if sitting or 45 degrees for supine). -: 0=No drift;limb holds for full 10 seconds. -: 1=Drift; limb holds but drifts down before full 10 seconds, but does not hit bed. -: 2=Some effort against gravity; limb cannot get to or maintain position. -: 3=No effort against gravity; limb falls. -: 4=No movement. -: UN=Amputation, joint fusion, explain in comments. 5. Responses (left arm): 0 5. Motor Functions (right arm): Alternate sides and extend each arm with palms down (90 degrees if sitting or 45 degrees for supine). -: 0=No drift;limb holds for full 10 seconds. -: 1=Drift; limb holds but drifts down before full 10 seconds, but does not hit bed. -: 2=Some effort against gravity; limb cannot get to or maintain position. -: 3=No effort against gravity; limb falls. -: 4=No movement. -: UN=Amputation, joint fusion, explain in comments. 5. Responses (right arm): 0 6. Motor Functions (left leg): With patient lying supine, alternate sides and extend each leg (30 degrees always while supine). -: 0=No drift, leg holds position for full 5 seconds -: 1=Drift; leg falls before full 5 seconds but does not hit bed. -: 2=Some effort against gravity, leg falls to bed but some effort against gravity. -: 3=No effort against gravity, leg falls to bed immediately. -: 4=No movement. -: UN=Amputation, joint fusion; explain in comments. 6. Responses (left leg): 0 6. Motor Functions (right leg): With patient lying supine, alternate sides and extend each leg (30 degrees always while supine). -: 0=No drift, leg holds position for full 5 seconds -: 1=Drift; leg falls before full 5 seconds but does not hit bed. -: 2=Some effort against gravity, leg falls to bed but some effort against gravity. -: 3=No effort against gravity, leg falls to bed immediately. -: 4=No movement. -: UN=Amputation, joint fusion; explain in comments. 6. Responses (right leg): 0 7. Limb Ataxia: With eyes open instruct patient to: -: a. "Touch your finger to your nose". -: b. "Touch your heel to your hall" -: 0=Absent -: 1=Present in one limb. -: 2=Present in two limbs. -: UN=Amputation or joint fusion; explain in comments. 7. Responses: 0 8. Sensory: Test sensation using pinprick or noxious stimuli. Test as many body parts as possible. -: 0=Normal;no sensory loss -: 1=Mile to moderate sensory loss (patient feels pin prick but is less sharp on affected side). -: 2=Severe or total sensory loss. 8. Responses: 1 9. Best Language: Instruct patient to: -: a. "Describe what you see in this picture." -: b. "Name the items in this picture." -: c. "Read these sentences." -: 0=No aphasia, normal -: 1=Mild to moderate aphasia. -: 2=Severe aphasia -: 3=Mute, global aphasia, no usable speech or auditory comprehension. 9. Responses: 0 10. Articulation, Dysarthia: Instruct patient to: -: "Read these words" or "Repeat these words" -: 0=Normal -: 1=Mild to moderate; patient may slur some words but can be understood without difficulty. -: 2=Severe; patients speech so slurred as to be unintelligible in the absence of dysphasia. -: UN=Intubated or other physical barrier, explain in comments. 10. Responses: 0 11. Extinction or inattention: 0=No abnormality -: 1= Visual, tactile, auditory, spatial, or personal inattention or extinction to bilateral simulation in one or the sensory modalities. -: 2=Profound alex-inattention or alex-inattention to more than one modality; does not recognize own hand. 11. Responses: 0 Total Score: 1
--- NOTE | 2020-02-23 19:15 | RADIOLOGY REPORT (SQ) ---
EXAM DESCRIPTION: CT HEAD WITHOUT IMAGES COMPLETED DATE/TIME: 02/23/2020 6:55 pm REASON FOR STUDY: Worst headache of life, numbness COMPARISON: 07/31/2014. TECHNIQUE: Axial images acquired through the brain without intravenous contrast. Images reviewed wi th bone, brain and subdural windows. Additional sagittal and coronal reconstructions were generated. Images stored on PACS. All CT scanners at this facility use dose modulation, iterative reconstruction, and/or weight based d osing when appropriate to reduce radiation dose to as low as reasonably achievable (ALARA). [facility]: Dose Right [facility]: CareDose [facility]: Dose Right [facility]: Teradose 4D [facility]: Smart Ziploop RADIATION DOSE: CT Rad equipment meets quality standard of care and radiation dose reduction techniq ues were employed. CTDIvol: 53.2 mGy. DLP: 1097 mGy-cm. mGy. LIMITATIONS: None. FINDINGS: VENTRICLES: Normal size and contour. CEREBRUM: No masses. No hemorrhage. No midline shift. No evidence for acute infarction. Normal gra y/white matter differentiation. No areas of low density in the white matter. CEREBELLUM: No masses. No hemorrhage. No alteration of density. No evidence for acute infarction. EXTRAAXIAL SPACES: No fluid collections. No masses. ORBITS AND GLOBE: No intra- or extraconal masses. Normal contour of globe without masses. CALVARIUM: No fracture. PARANASAL SINUSES: No fluid or mucosal thickening. SOFT TISSUES: No mass or hematoma. OTHER: No other significant finding. IMPRESSION: NORMAL BRAIN CT WITHOUT CONTRAST. EVIDENCE OF ACUTE STROKE: NO. COMMENT: Quality ID # [id number]: Final reports with documentation of one or more dose reduction techniques (e.g., Automated exposure control, adjustment of the mA and/or kV according to patient size, use of iterative reconstruction technique) TECHNICAL DOCUMENTATION: JOB ID: [id number] 2010 [employer]- All Rights Reserved Reading location - IP/workstation name: [email or web address]
--- NOTE | 2020-02-23 19:18 | RADIOLOGY REPORT (SQ) ---
EXAM DESCRIPTION: CHEST SINGLE VIEW IMAGES COMPLETED DATE/TIME: 02/23/2020 6:58 pm REASON FOR STUDY: stroke protocol COMPARISON: 07/07/2016. EXAM PARAMETERS: NUMBER OF VIEWS: One view. TECHNIQUE: Single frontal radiographic view of the chest acquired. RADIATION DOSE: NA LIMITATIONS: None. FINDINGS: LUNGS AND PLEURA: No opacities, masses or pneumothorax. No pleural effusion. MEDIASTINUM AND HILAR STRUCTURES: No masses. Contour normal. HEART AND VASCULAR STRUCTURES: Heart normal in size. Normal vasculature. BONES: No acute findings. HARDWARE: None in the chest. OTHER: No other significant finding. IMPRESSION: NO ACUTE RADIOGRAPHIC FINDING IN THE CHEST. TECHNICAL DOCUMENTATION: JOB ID: [id number] 2010 [employer]- All Rights Reserved Reading location - IP/workstation name: [email or web address]
[2020-02-23 19:31] LABS: ABSOLUTE BASOPHILS # (AUTO) 0.1 10^3/uL (0.0-0.2); ABSOLUTE EOSINOPHILS # (AUTO) 0.4 10^3/uL (0.0-0.6); ABSOLUTE LYMPHOCYTES (AUTO) 2.8 10^3/uL (0.5-4.7); ABSOLUTE MONOCYTES (AUTO) 0.8 10^3/uL (0.1-1.4); ABSOLUTE NEUT (AUTO) 3.9 10^3/uL (1.7-8.2); BASOPHILS % (AUTO) 0.7 % (0-2); EOSINOPHILS % (AUTO) 4.6 % (0-6); LYMPHOCYTES % (AUTO) 35.6 % (13-45); MEAN CORPUSCULAR HEMOGLOBIN 31.6 pg (27.0-33.4); MEAN CORPUSCULAR HGB CONC 35.7 g/dL (32.0-36.0); MEAN CORPUSCULAR VOLUME 89 fl (80-97); PLATELET COUNT 213 10^3/uL (150-450); RED BLOOD COUNT 4.75 10^6/uL (4.35-5.55); RED CELL DISTRIBUTION WIDTH 13.3 % (11.5-14.0); SEGMENTED NEUTROPHILS % (AUTO) 49.1 % (42-78); TOTAL CELLS COUNTED % (AUTO) 100 %
[2020-02-23 19:37] LABS: INTERNATIONAL RATION (INR) 0.98
[2020-02-23 19:38] LABS: PARTIAL THROMBOPLASTIN TIME 27.8 SEC (23.5-35.8)
[2020-02-23 19:50] LABS: ALBUMIN 4.3 g/dL (3.5-5.0); ALKALINE PHOSPHATASE 63 U/L (38-126); ANION GAP 8 (5-19); ASPARTATE AMINO TRANSFERASE 37 U/L (17-59); BILIRUBIN,TOTAL 0.5 mg/dL (0.2-1.3); BLOOD UREA NITROGEN 18 mg/dL (7-20); CALCIUM 9.2 mg/dL (8.4-10.2); CARBON DIOXIDE 27 mmol/L (22-30); CHLORIDE 102 mmol/L (98-107); CREATINE KINASE 126 U/L (55-170); GLUCOSE 127 mg/dL (75-110); TOTAL PROTEIN 7.4 g/dL (6.3-8.2)
[2020-02-23 20:06] LABS: CREATINE KINASE MB 1.04 ng/mL (<4.55)
[2020-02-23 20:08] LABS: TROPONIN I < 0.012 ng/mL
[2020-02-23 20:11] VITALS: BP 168/99
--- NOTE | 2020-02-23 20:42 | ER Document Report ---
ED General - General Chief Complaint: S/S of Possible Stroke Stated Complaint: ARM NUMBNESS Time Seen by Provider: 02/23/20 18:47 Primary Care Provider: NHAN STEELE MD [Primary Care Provider] - Follow up as needed Mode of Arrival: Wheelchair Information source: Patient Notes: Patient is a 44-year-old male presenting to the emergency department chief complaint of possible TIA. Patient states that everything seemed to start on Thursday he had some mild confusion and word difficulty this had resolved until today he woke up with a bad headache at about 530 this morning he states the pain was 5 out of 5. He tried to go to work as normal but was unable to because of the headache. Patient returned home and slept most of the day until this evening he woke up and had left-sided numbness and was extremely tired he was encouraged by his to come to the emergency department for evaluation and treatment. By the time the patient arrived symptoms have completely subsided. Patient states he had a prior TIA in 2017. Patient denies travel history trauma history sick contacts no bad food exposure no change in medications. TRAVEL OUTSIDE OF THE [place] IN LAST 30 DAYS: No - HPI Onset: This morning Onset/Duration: Gradual, Better Quality of pain: Throbbing Severity: Severe Pain Level: 5 Associated symptoms: Headache Exacerbated by: Denies Relieved by: Denies Similar symptoms previously: Yes Recently seen / treated by doctor: No - Related Data Allergies/Adverse Reactions: No Known Allergies Allergy (Verified 07/07/16 18:10) Past Medical History - General Information source: Patient - Social History Smoking Status: Former Smoker Cigarette use (# per day): No Chew tobacco use (# tins/day): No Smoking Education Provided: No Frequency of alcohol use: None Drug Abuse: None Lives with: Family Family History: Reviewed & Not Pertinent Patient has suicidal ideation: No Patient has homicidal ideation: No - Past Medical History Cardiac Medical History: Denies: Hx Atrial Fibrillation, Hx Congestive Heart Failure, Hx Coronary Artery Disease, Hx Heart Attack, Hx Hypercholesterolemia, Hx Hypertension, Hx Peripheral Vascular Disease, Hx Pulmonary Embolism, Hx Heart Murmur Pulmonary Medical History: Denies: Hx Asthma, Hx Bronchitis, Hx COPD, Hx Pneumonia, Hx Respiratory Failure, Hx Sleep Apnea, Hx Tuberculosis Neurological Medical History: Reports: Other - Prior TIA 2016. Denies: Hx Cerebrovascular Accident, Hx Seizures, Hx Parkinson's Disease Endocrine Medical History: Reports: Hx Diabetes Mellitus Type 2. Denies: Hx Diabetes Mellitus Type 1, Hx Graves' Disease, Hx Hyperthyroidism, Hx Hypothyroidism Renal/ Medical History: Denies: Hx Benign Prostatic Hyperplasia, Hx End Stage Renal Disease, Hx Kidney Stones, Hx Peritoneal Dialysis Malignancy Medical History: Denies Hx Leukemia, Denies Hx Lung Cancer GI Medical History: Reports: Hx Diverticulitis. Denies: Hx Crohn's Disease, Hx Gastroesophageal Reflux Disease, Hx Hiatal Hernia, Hx Irritable Bowel, Hx Liver Failure, Hx Pancreatitis, Hx Ulcer Musculoskeletal Medical History: Denies Hx Arthritis, Denies Hx Fibromyalgia, Denies Hx Multiple Sclerosis, Denies Hx Muscular Dystrophy, Denies Hx Systemic Lupus Erythematosus Psychiatric Medical History: Denies: Hx Bipolar Disorder, Hx Dementia, Hx Depression, Hx Post Traumatic Stress Disorder, Hx Schizophrenia Traumatic Medical History: Denies: Hx Fractures Infectious Medical History: Denies: Hx HIV Past Surgical History: Reports: Hx Bowel Surgery - colostomy,COLON RESECTION, ILEOSTOMY IN PLACE. Denies: Hx Appendectomy, Hx Cholecystectomy, Hx Colostomy, Hx Coronary Artery Bypass Graft, Hx Gastric Bypass Surgery, Hx Herniorrhaphy, Hx Pacemaker, Hx Tonsillectomy - Immunizations Hx Diphtheria, Pertussis, Tetanus Vaccination: Yes Review of Systems - Review of Systems Notes: REVIEW OF SYSTEMS: CONSTITUTIONAL : Per HPI EENT: Denies eye, ear, throat, or mouth pain or symptoms. Denies nasal or sinus congestion. CARDIOVASCULAR: Denies chest pain. RESPIRATORY: Denies cough, cold, or chest congestion. Denies shortness of breath, difficulty breathing, or wheezing. GASTROINTESTINAL: Denies abdominal pain. Denies nausea, vomiting, or diarrhea. Denies constipation. GENITOURINARY: Denies difficulty urinating, painful urination, burning, frequency, or blood in urine. MUSCULOSKELETAL: Denies neck or back pain or joint pain or swelling. SKIN: Denies rash or skin lesions. HEMATOLOGIC : Denies easy bruising or bleeding. NEUROLOGICAL: Per HPI PSYCHIATRIC: Denies suicidal or homicidal ideations 10 Systems are negative unless otherwise specified above Physical Exam - Vital signs Vitals: Temp Pulse Resp BP Pulse Ox 98.1 F 100 20 158/99 H 98 02/23/20 18:32 02/23/20 18:32 02/23/20 18:32 02/23/20 18:32 02/23/20 18:32 - Notes Notes: PHYSICAL EXAMINATION: GENERAL: Well-appearing, well-nourished and in no acute distress. HEAD: Atraumatic, normocephalic. EYES: Pupils equal round and reactive to light, extraocular movements intact, sclera anicteric, conjunctiva are normal. ENT: nares patent, oropharynx clear without exudates. Moist mucous membranes. NECK: Normal range of motion, supple without lymphadenopathy, no appreciable JVD LUNGS: Lungs clear to auscultation bilaterally and equal. No wheezes rales or rhonchi. HEART: Regular rate and rhythm without murmurs ABDOMEN: Soft, nontender, normal bowel sounds. No guarding, no rebound. No masses appreciated. EXTREMITIES: Active full range of motion, no pitting or edema. No cyanosis. 2+ pulses x4 NEUROLOGICAL: At time of evaluation the patient is alert and oriented x3, Glascow coma scale of 15, cranial nerves II through XII are grossly intact, sensations intact, motor is intact, there are no signs of nystagmus, there is no pronator drift, there is no facial asymmetry, tongue protrusion is midline, reflexes are equal and bilateral, patient answers all questions appropriately follows commands appropriately. SKIN: Warm, Dry, and intact. Normal turgor, no rashes or lesions noted. Course - Re-evaluation Re-evalutation: 02/23/20 20:47 Patient has been reevaluated several times while in emergency department patient's blood pressure has slowly defervesced. Patient has been completely asymptomatic while in the emergency department. We did discuss at great length the need to follow-up with his family physician and more than likely neurology in the near future. Patient is agreeable with care plan. At this time after re viewing EKG lab work and radiologic studies I find no significant abnormalities. No new medications will be started at this time. Patient is recommended to follow-up with his family physician in regards to both the presumed TIA and his slightly elevated blood pressure. Patient is stable at time of discharge. - Vital Signs Vital signs: Temp Pulse Resp BP Pulse Ox 98.1 F 87 15 168/99 H 97 02/23/20 18:32 02/23/20 19:23 02/23/20 20:01 02/23/20 20:01 02/23/20 20:01 - Laboratory Result Diagrams: 02/23/20 19:12 02/23/20 19:12 Laboratory results interpreted by me: 02/23/20 19:12 Glucose 127 H ALT 62 H - Diagnostic Test Radiology reviewed: Reports reviewed - EKG Interpretation by Me EKG shows normal: Sinus rhythm Rate: Normal Rhythm: NSR When compared to previous EKG there are: No significant change Discharge - Discharge Clinical Impression: TIA (transient ischemic attack), Elevated blood pressure reading Condition: Stable Disposition: HOME, SELF-CARE Additional Instructions: Transient Ischemic Attack You have been diagnosed as having a transient ischemic attack (TIA). This is caused when an artery to the brain has been temporarily blocked. It can result in visual changes, difficulty with speech, and weakness or numbness -- usually limited to one side of the body. TIA symptoms usually resolve within an hour, but a TIA is serious, as it may be a warning sign of an impending stroke. To prevent further episodes, you may be placed on medication to reduce the possibility that your platelets will aggregate and form blood clots in the arteries that supply the brain. Usually, this includes aspirin and sometimes ot her platelet inhibitors. Further evaluation is often necessary to make an exact diagnosis as to where these blood clots are originating, and if anything else needs to be done to correct the problem. Call the physician or go to the emergency room if episodes occur with increasing frequency. If symptoms occur that don't go away within a few minutes, call 911. HIGH BLOOD PRESSURE, NOT TREAT: When your blood pressure was taken today it was elevated. Today's reading was __168/98 . We do not think you need to have your blood pressure treated today. Sometimes, stress or illness causes a temporary elevation of your blood pressure. We suggest that you get your blood pressure measured again during the next few days to see if this elevated blood pressure is more than a temporary abnormality. If your blood pressure is greater than 150/90 on each occasion, you must have treatment. Some simple things you can do to help are: If you have blood pressure medi cine but aren't using it regularly, start taking it again. Get some aerobic exercise for at least 20 minutes on a daily basis. (See your doctor before beginning a new exercise program.) Eat a low-fat diet. Lose excess weight. Avoid salty foods and avoid adding salt to any of the foods you eat. Avoid diet pills, decongestants, "energizing" herbs, and other medicines that elevate blood pressure. If left untreated, hypertension greatly enhances your risk for developing heart disease and strokes. Please don't ignore this problem. FOLLOW-UP CARE: If you have been referred to a physician for follow-up care, call the physicians office for an appointment as you were instructed or within the next two days. If you experience worsening or a significant change in your symptoms, notify the physician immediately or return to the Emergency Department at any time for re-evaluation. Also recommend following up with local neurologist contact your primary care provider for establishing an appointment. Forms: Return to Work Referrals: NHAN STEELE MD [Primary Care Provider] - Follow up as needed
--- NOTE | 2020-02-24 14:29 | EKG REPORT ---
SEVERITY:- NORMAL ECG - SINUS RHYTHM : Confirmed by: Humaira Younger MD 24-Feb-2020 14:28:24
== END 2020-02-23 21:00 | disposition home or self-care (01) ==
LOC: ER 18:29
DX: G45.9 Transient cerebral ischemic attack, unspecified (principal); R03.0 Elevated blood-pressure reading, without diagnosis of hypertension; R20.0 Anesthesia of skin; R41.0 Disorientation, unspecified; R51 Headache; E11.9 Type 2 diabetes mellitus without complications
CPT/HCPCS: 36415; 70450; 71045; 80053; 82550; 82553; 82962; 84484; 85025; 85610; 85730; 93005; 93010; 99285

== ENCOUNTER 2020-09-09 15:08 | Emergency (ER) | payer BC ==
[2020-09-09] MEDS ORDERED: RINGERS SOLUTION,LACTATED 1,000 ML IV ONE (15:22)
--- NOTE | 2020-09-09 15:24 | ER Document Report ---
HPI - HPI Patient complains to provider of: abdominal pain Time Seen by Provider: 09/09/20 15:19 - REPRODUCTIVE Reproductive: DENIES: : Past Medical History - Social History Family History: Reviewed & Not Pertinent - Past Medical History Cardiac Medical History: Denies: Hx Atrial Fibrillation, Hx Congestive Heart Failure, Hx Coronary Artery Disease, Hx Heart Attack, Hx Hypercholesterolemia, Hx Hypertension, Hx Peripheral Vascular Disease, Hx Pulmonary Embolism, Hx Heart Murmur Pulmonary Medical History: Denies: Hx Asthma, Hx Bronchitis, Hx COPD, Hx Pneumonia, Hx Respiratory Failure, Hx Sleep Apnea, Hx Tuberculosis Neurological Medical History: Denies: Hx Cerebrovascular Accident, Hx Seizures, Hx Parkinson's Disease Endocrine Medical History: Reports: Hx Diabetes Mellitus Type 2. Denies: Hx Diabetes Mellitus Type 1, Hx Graves' Disease, Hx Hyperthyroidism, Hx Hypothyroidism Renal/ Medical History: Denies: Hx Benign Prostatic Hyperplasia, Hx End Stage Renal Disease, Hx Kidney Stones, Hx Peritoneal Dialysis Malignancy Medical History: Denies Hx Leukemia, Denies Hx Lung Cancer GI Medical History: Reports: Hx Diverticulitis. Denies: Hx Crohn's Disease, Hx Gastroesophageal Reflux Disease, Hx Hiatal Hernia, Hx Irritable Bowel, Hx Liver Failure, Hx Pancreatitis, Hx Ulcer Musculoskeletal Medical History: Denies Hx Arthritis, Denies Hx Fibromyalgia, Denies Hx Multiple Sclerosis, Denies Hx Muscular Dystrophy, Denies Hx Systemic Lupus Erythematosus Psychiatric Medical History: Denies: Hx Bipolar Disorder, Hx Dementia, Hx Depression, Hx Post Traumatic Stress Disorder, Hx Schizophrenia Traumatic Medical History: Denies: Hx Fractures Infectious Medical History: Denies: Hx HIV Past Surgical History: Reports: Hx Bowel Surgery - colostomy,COLON RESECTION, ILEOSTOMY IN PLACE. Denies: Hx Appendectomy, Hx Cholecystectomy, Hx Colostomy, Hx Coronary Artery Bypass Graft, Hx Gastric Bypass Surgery, Hx Herniorrhaphy, Hx Pacemaker, Hx Tonsillectomy - Immunizations Hx Diphtheria, Pertussis, Tetanus Vaccination: Yes Vertical Provider Document - INFECTION CONTROL TRAVEL OUTSIDE OF THE [place] IN LAST 30 DAYS: No Course - Vital Signs Vital signs: Temp Pulse Resp BP Pulse Ox 98.9 F 83 16 139/89 H 97 09/09/20 15:14 09/09/20 15:14 09/09/20 15:14 09/09/20 15:14 09/09/20 15:14 Discharge - Discharge Referrals: NHAN STEELE MD [Primary Care Provider] - Follow up as needed
--- NOTE | 2020-09-09 15:29 | ER Document Report ---
ED Medical Screen (RME) - General Stated Complaint: LOWER ABDOMINAL PAIN Time Seen by Provider: 09/09/20 15:19 Primary Care Provider: NHAN STEELE MD [Primary Care Provider] - Follow up as needed Mode of Arrival: Ambulatory Information source: Patient Notes: HPI; 45-year-old male with a past medical history significant for diverticulitis with a colon resection presents to the emergency room complaining of worsening left lower quadrant pain for the past week. Decreased appetite. 2-3 episodes of diarrhea since Thursday. States saw his primary care physician on Thursday was prescribed Cipro and Flagyl which he has been taking without relief of symptoms. Denies nausea, fevers, no urinary symptoms. No COVID-19 exposure. PE: Alert and oriented x3. Lungs: Clear to auscultation without rales, rhonchi, wheezes. Heart: Regular rate rhythm without murmurs, rubs, gallops. I have greeted and performed a rapid initial assessment of this patient. A comprehensive ED assessment and evaluation of the patient, analysis of test results and completion of the medical decision making process will be conducted by additional ED providers. I have specifically instructed the patient or family members with the patient to immediately return to any nursing staff should anything change in the patient's condition or with their chief complaint. TRAVEL OUTSIDE OF THE [place] IN LAST 30 DAYS: No - Related Data Allergies/Adverse Reactions: No Known Allergies Allergy (Verified 07/07/16 18:10) Past Medical History - Past Medical History Cardiac Medical History: Denies: Hx Atrial Fibrillation, Hx Congestive Heart Failure, Hx Coronary Artery Disease, Hx Heart Attack, Hx Hypercholesterolemia, Hx Hypertension, Hx Peripheral Vascular Disease, Hx Pulmonary Embolism, Hx Heart Murmur Pulmonary Medical History: Denies: Hx Asthma, Hx Bronchitis, Hx COPD, Hx Pneumonia, Hx Respiratory Failure, Hx Sleep Apnea, Hx Tuberculosis Neurological Medical History: Denies: Hx Cerebrovascular Accident, Hx Seizures, Hx Parkinson's Disease Endocrine Medical History: Reports: Hx Diabetes Mellitus Type 2. Denies: Hx Diabetes Mellitus Type 1, Hx Graves' Disease, Hx Hyperthyroidism, Hx Hypoth yroidism Renal/ Medical History: Denies: Hx Benign Prostatic Hyperplasia, Hx End Stage Renal Disease, Hx Kidney Stones, Hx Peritoneal Dialysis Malignancy Medical History: Denies Hx Leukemia, Denies Hx Lung Cancer GI Medical History: Reports: Hx Diverticulitis. Denies: Hx Crohn's Disease, Hx Gastroesophageal Reflux Disease, Hx Hiatal Hernia, Hx Irritable Bowel, Hx Liver Failure, Hx Pancreatitis, Hx Ulcer Musculoskeltal Medical History: Denies Hx Arthritis, Denies Hx Fibromyalgia, Denies Hx Multiple Sclerosis, Denies Hx Muscular Dystrophy, Denies Hx Systemic Lupus Erythematosus Psychiatric Medical History: Denies: Hx Bipolar Disorder, Hx Dementia, Hx Depression, Hx Post Traumatic Stress Disorder, Hx Schizophrenia Traumatic Medical History: Denies: Hx Fractures Infectious Medical History: Denies: Hx HIV Past Surgical History: Reports: Hx Bowel Surgery - colostomy,COLON RESECTION, ILEOSTOMY IN PLACE. Denies: Hx Appendectomy, Hx Cholecystectomy, Hx Colostomy, Hx Coronary Artery Bypass Graft, Hx Gastric Bypass Surgery, Hx Herniorrhaphy, Hx Pacemaker, Hx Tonsillectomy - Immunizations Hx Diphtheria, Pertussis, Tetanus Vaccination: Yes Physical Exam - Vital signs Vitals: Temp Pulse Resp BP Pulse Ox 98.9 F 83 16 139/89 H 97 09/09/20 15:14 09/09/20 15:14 09/09/20 15:14 09/09/20 15:14 09/09/20 15:14 Course - Vital Signs Vital signs: Temp Pulse Resp BP Pulse Ox 98.9 F 83 16 139/89 H 97 09/09/20 15:14 09/09/20 15:14 09/09/20 15:14 09/09/20 15:14 09/09/20 15:14 Doctor's Discharge - Discharge Referrals: NHAN STEELE MD [Primary Care Provider] - Follow up as needed
[2020-09-09 16:07] LABS: ABSOLUTE EOSINOPHILS # (AUTO) 0.2 10^3/uL (0.0-0.6); ABSOLUTE MONOCYTES (AUTO) 0.6 10^3/uL (0.1-1.4); ABSOLUTE NEUT (AUTO) 6.2 10^3/uL (1.7-8.2); BASOPHILS % (AUTO) 0.3 % (0-2); EOSINOPHILS % (AUTO) 2.3 % (0-6); HEMATOCRIT 46.8 % (37.9-51.0); HEMOGLOBIN 16.2 g/dL (13.5-17.0); LYMPHOCYTES % (AUTO) 21.9 % (13-45); MEAN CORPUSCULAR HEMOGLOBIN 30.6 pg (27.0-33.4); MEAN CORPUSCULAR HGB CONC 34.6 g/dL (32.0-36.0); MEAN CORPUSCULAR VOLUME 88 fl (80-97); MONOCYTES % (AUTO) 6.7 % (3-13); PLATELET COUNT 274 10^3/uL (150-450); RED BLOOD COUNT 5.29 10^6/uL (4.35-5.55); RED CELL DISTRIBUTION WIDTH 12.2 % (11.5-14.0); SEGMENTED NEUTROPHILS % (AUTO) 68.8 % (42-78); TOTAL CELLS COUNTED % (AUTO) 100 %
[2020-09-09 16:13] LABS: APPEARANCE,URINE CLEAR; BILIRUBIN,URINE NEGATIVE (NEGATIVE); COLOR,URINE YELLOW; GLUCOSE, URINE NEGATIVE (NEGATIVE); KETONES,URINE TRACE mg/dL (NEGATIVE); LEUKOCYTE ESTERASE,URINE TRACE (NEGATIVE); NITRITE,URINE NEGATIVE (NEGATIVE); PROTEIN,URINE NEGATIVE (NEGATIVE); URINE SPECIFIC GRAVITY 1.019; UROBILINOGEN,URINE NEGATIVE mg/dL (<2.0)
[2020-09-09 16:24] LABS: ALBUMIN 4.8 g/dL (3.5-5.0); ALKALINE PHOSPHATASE 79 U/L (38-126); ANION GAP 13 (5-19); ASPARTATE AMINO TRANSFERASE 32 U/L (17-59); BILIRUBIN,DIRECT 0.2 mg/dL (0.0-0.4); BLOOD UREA NITROGEN 12 mg/dL (7-20); CALCIUM 10.1 mg/dL (8.4-10.2); CARBON DIOXIDE 25 mmol/L (22-30); CHLORIDE 100 mmol/L (98-107); GLUCOSE 98 mg/dL (75-110); POTASSIUM 4.3 mmol/L (3.6-5.0); TOTAL PROTEIN 8.1 g/dL (6.3-8.2)
--- NOTE | 2020-09-09 16:48 | RADIOLOGY REPORT (SQ) ---
EXAM DESCRIPTION: CT ABD/PELVIS WITH IV ONLY IMAGES COMPLETED DATE/TIME: 09/09/2020 4:30 pm REASON FOR STUDY: llq pain COMPARISON: 03/24/2017 TECHNIQUE: CT scan of the abdomen and pelvis performed using helical scanning technique with dynamic intravenous contrast injection. No oral contrast. Images reviewed with lung, soft tissue, and bone windows. Reconstructed coronal and sagittal MPR images reviewed. Delayed images for evaluation of the urinary system also acquired. All images stored on PACS. All CT scanners at this facility use dose modulation, iterative reconstruction, and/or weight based d osing when appropriate to reduce radiation dose to as low as reasonably achievable (ALARA). [facility]: Dose Right [facility]: CareDose [facility]: Dose Right [facility]: Teradose 4D [facility]: interspireSubmit CONTRAST TYPE AND DOSE: contrast/concentration: Isovue 350.00 mmol/ml; Total Contrast Delivered: 100 .0 ml; Total Saline Delivered: 47.0 ml RENAL FUNCTION: None required. The patient is less than 50 years old. RADIATION DOSE: CT Rad equipment meets quality standard of care and radiation dose reduction techniq ues were employed. CTDIvol: 15.0 - 19.1 mGy. DLP: 2057 mGy-cm.. LIMITATIONS: None. FINDINGS: LOWER CHEST: Insignificant increase in size of a right lower lobe pulmonary nodule now nina suring 5.7 mm (previously 5.0 mm in 2017). LIVER: Normal size. No masses. No dilated ducts. Re- demonstration of hepatic steatosis. SPLEEN: Normal size. No focal lesions. PANCREAS: No masses. No significant calcifications. No adjacent inflammation or peripancreatic fluid collections. Pancreatic duct not dilated. GALLBLADDER: Surgically absent. ADRENAL GLANDS: No significant masses or asymmetry. RIGHT KIDNEY AND URETER: No solid masses. No significant calcifications. No hydronephrosis or hyd roureter. LEFT KIDNEY AND URETER: No solid masses. No significant calcifications. No hydronephrosis or hydr oureter. AORTA AND VESSELS: No aneurysm. No dissection. Renal arteries, SMA, celiac without stenosis. RETROPERITONEUM: No retroperitoneal adenopathy, hemorrhage or masses. BOWEL AND PERITONEAL CAVITY: Postsurgical changes ; a sigmoid anastomosis appears to be intact. No i nflammatory changes. No obstruction. APPENDIX: Surgically absent. PELVIS: No mass. No free fluid. Normal bladder. ABDOMINAL WALL: Small fat containing inguinal hernias. BONES: No significant or acute findings. OTHER: No other significant finding. IMPRESSION: No evidence of acute intra-abdominal infectious/inflammatory process. Chronic and incid ental findings as detailed above. TECHNICAL DOCUMENTATION: JOB ID: [id number] Quality ID # [id number]: Final reports with documentation of one or more dose reduction techniques (e.g., Au tomated exposure control, adjustment of the mA and/or kV according to patient size, use of iterative reconstruction technique) 2010 [employer]- All Rights Reserved Reading location - IP/workstation name: [email or web address]
[2020-09-09] MEDS ORDERED: HYDROCODONE/ACETAMINOPHEN 5-325 MG (6 TAB/ER DISP) PO PRN (17:16)
--- NOTE | 2020-09-09 17:23 | ER Document Report ---
ED GI/ - General Chief Complaint: Abdominal Pain Stated Complaint: LOWER ABDOMINAL PAIN Time Seen by Provider: 09/09/20 17:00 Primary Care Provider: NHAN STEELE MD [Primary Care Provider] - Follow up as needed Mode of Arrival: Ambulatory Information source: Patient Notes: Patient presents complaining of left lower quadrant pain for the past week with decreased appetite. Patient states he has had diarrhea for the past 3 days with 2 episodes today. Patient has a history of diverticulitis and previous perforation that resulted in a bowel resection in the past. Patient states he was concerned about this and wanted to be evaluated. Patient states he did see his primary doctor 3 days ago was started on Cipro and Flagyl for his symptoms. Patient denies any fever, nausea or vomiting. Patient denies any blood in the stool. TRAVEL OUTSIDE OF THE [place] IN LAST 30 DAYS: No - HPI Patient complains to provider of: Abdominal pain, Diarrhea. No: Vomiting Onset: Last week Timing/Duration: Persistent Quality of pain: Achy Pain Level: 2 Location: LLQ Associated symptoms: Diarrhea. denies: Blood in emesis, Blood in stool, Dysuria, Fever, Nausea, Urinary hesitancy, Urinary frequency, Urinary retention, Urinary urgency, Vomiting Exacerbated by: Movement Relieved by: Denies Similar symptoms previously: Yes Recently seen / treated by doctor: Yes - Primary doctor place patient on antibiotics - Related Data Allergies/Adverse Reactions: No Known Allergies Allergy (Verified 07/07/16 18:10) Home Medications: escitalopram Past Medical History - General Information source: Patient - Social History Smoking Status: Never Smoker Chew tobacco use (# tins/day): No Frequency of alcohol use: Occasional Drug Abuse: None Occupation: [employer] Lives with: Family Family History: Reviewed & Not Pertinent Neurological Medical History: Denies: Hx Cerebrovascular Accident, Hx Seizures, Hx Parkinson's Disease Endocrine Medical History: Reports: Hx Diabetes Mellitus Type 2 Renal/ Medical History: Denies: Hx Benign Prostatic Hyperplasia, Hx End Stage Renal Disease, Hx Kidney Stones, Hx Peritoneal Dialysis Malignancy Medical History: Denies Hx Leukemia, Denies Hx Lung Cancer GI Medical History: Reports: Hx Diverticulitis, Hx Gastroesophageal Reflux Disease Musculoskeletal Medical History: Denies Hx Arthritis, Denies Hx Fibromyalgia, Denies Hx Multiple Sclerosis, Denies Hx Muscular Dystrophy, Denies Hx Systemic Lupus Erythematosus Psychiatric Medical History: Denies: Hx Bipolar Disorder, Hx Dementia, Hx Depression, Hx Post Traumatic Stress Disorder, Hx Schizophrenia Traumatic Medical History: Denies: Hx Fractures Infectious Medical History: Denies: Hx HIV Past Surgical History: Reports: Hx Appendectomy, Hx Bowel Surgery - colostomy,COLON RESECTION, ILEOSTOMY IN PLACE, Hx Cholecystectomy - Immunizations Hx Diphtheria, Pertussis, Tetanus Vaccination: Yes Review of Systems - Review of Systems Constitutional: No symptoms reported. denies: Fever EENT: No symptoms reported Cardiovascular: No symptoms reported. denies: Chest pain Respiratory: No symptoms reported. denies: Cough, Short of breath Gastrointestinal: Abdominal pain, Diarrhea. denies: Nausea, Vomiting Genitourinary: No symptoms reported. denies: Dysuria, Flank pain Male Genitourinary: No symptoms reported Musculoskeletal: No symptoms reported. denies: Back pain Skin: No symptoms reported Hematologic/Lymphatic: No symptoms reported Physical Exam - Vital signs Vitals: Temp Pulse Resp BP Pulse Ox 98.9 F 83 16 139/89 H 97 09/09/20 15:14 09/09/20 15:14 09/09/20 15:14 09/09/20 15:14 09/09/20 15:14 - Notes Notes: PHYSICAL EXAMINATION: GENERAL: Well-appearing and in no acute distress. HEAD: Atraumatic, normocephalic. EYES: sclera anicteric, conjunctiva are normal. ENT: nares patent. Moist mucous membranes. NECK: Normal range of motion, supple LUNGS: CTAB and equal. No wheezes rales or rhonchi. HEART: Regular rate and rhythm without murmurs ABDOMEN: Soft, left lower quadrant tenderness, normal bowel sounds, no guarding. EXTREMITIES: Normal range of motion, no pitting edema. No cyanosis. BACK: No midline tenderness, no step-off or deformity. No CVA tenderness NEUROLOGICAL: Cranial nerves grossly intact. Normal speech. PSYCH: Normal mood, normal affect. SKIN: Warm, Dry, normal turgor, no rashes or lesions noted Course - Re-evaluation Re-evalutation: 09/09/20 17:19 Patient's abdomen soft, mild tenderness to left lower quadrant. Patient without any fever, leukocytosis or acute findings on diagnostic evaluation. Patient without any worrisome findings on CT. No concern for diverticulitis, abscess or perforation at this time. No peritoneal signs. Patient has been on Cipro and Flagyl for the past 3 days and is encouraged to continue to take this medication. Patient nontoxic in appearance. Patient states that he primarily came to be evaluated due to previously having to have a bowel resection after a perforated diverticulum in the past. - Vital Signs Vital signs: Temp Pulse Resp BP Pulse Ox 98.8 F 76 16 145/88 H 98 09/09/20 17:37 09/09/20 17:37 09/09/20 17:37 09/09/20 17:37 09/09/20 17:37 - Laboratory Result Diagrams: 09/09/20 15:40 09/09/20 15:40 Laboratory results interpreted by me: 09/09/20 15:30 Urine Ketones TRACE H Ur Leukocyte Esterase TRACE H 09/09/20 17:19 Labs- All tests 24 hr 09/09/20 09/09/20 09/09/20 15:30 15:40 15:40 WBC 9.0 RBC 5.29 Hgb 16.2 Hct 46.8 MCV 88 MCH 30.6 MCHC 34.6 RDW 12.2 Plt Count 274 Lymph % (Auto) 21.9 [place] % (Auto) 6.7 Eos % (Auto) 2.3 Baso % (Auto) 0.3 Absolute Neuts (auto) 6.2 Absolute Lymphs (auto) 2.0 Absolute Monos (auto) 0.6 Absolute Eos (auto) 0.2 Absolute Basos (auto) 0.0 Seg Neutrophils % 68.8 Sodium 137.6 Potassium 4.3 Chloride 100 Carbon Dioxide 25 Anion Gap 13 BUN 12 Creatinine 1.05 Est GFR ( Amer) > 60 Est GFR (MDRD) Non-Af > 60 Glucose 98 Calcium 10.1 Total Bilirubin 1.0 Direct Bilirubin 0.2 Neonat Total Bilirubin Not Reportable Neonat Direct Bilirubin Not Reportable Neonat Indirect Bili Not Reportable AST 32 ALT 40 Alkaline Phosphatase 79 Total Protein 8.1 Albumin 4.8 Urine Color YELLOW Urine Appearance CLEAR Urine pH 6.0 Ur Specific [place] 1.019 Urine Protein NEGATIVE Urine Glucose (UA) NEGATIVE Urine Ketones TRACE H Urine Blood NEGATIVE Urine Nitrite NEGATIVE Urine Bilirubin NEGATIVE Urine Urobilinogen NEGATIVE Ur Leukocyte Esterase TRACE H Urine WBC (Auto) 0 Urine RBC (Auto) 0 Squamous Epi Cells Auto 1 Urine Mucus (Auto) FEW Urine Ascorbic Acid NEGATIVE - Diagnostic Test Radiology reviewed: Reports reviewed Discharge - Discharge Clinical Impression: Abdominal pain Qualifiers: Abdominal location: left lower quadrant Qualified Code(s): R10.32 - Left lower quadrant pain Diarrhea Qualifiers: Diarrhea type: unspecified type Qualified Code(s): R19.7 - Diarrhea, unspecified Condition: Stable Disposition: HOME, SELF-CARE Instructions: Abdominal Pain ([facility]) Additional Instructions: Return immediately for any new or worsening symptoms: Fever, vomiting, worsening diarrhea, blood in stool, worsening pain or any concerning new symptoms Followup with your primary care provider, call tomorrow to make a followup appointment Continue to take your Cipro and Flagyl as previously prescribed Prescriptions: Hydrocodone/Acetaminophen [[place] 5-325 mg Tablet] 1 tab PO Q6 PRN #10 tablet PRN Reason: Forms: Return to Work Referrals: NHAN STEELE MD [Primary Care Provider] - Follow up as needed
[2020-09-09 17:39] VITALS: BP 145/88
== END 2020-09-09 17:38 | disposition home or self-care (01) ==
LOC: ER 15:08
DX: R10.32 Left lower quadrant pain (principal); R10.814 Left lower quadrant abdominal tenderness; R63.0 Anorexia; R19.7 Diarrhea, unspecified; E11.9 Type 2 diabetes mellitus without complications; Z87.19 Personal history of other diseases of the digestive system; Z90.49 Acquired absence of other specified parts of digestive tract
CPT/HCPCS: 99285; 96360; 36415; 85025; 80053; 81001; 74177; J7120